=== PATIENT | male | born 1960 | race Caucasian/White ===

== ENCOUNTER 2017-08-15 08:12 | Day surgery (SDC) | payer BC ==
[2017-08-14 08:27] VITALS: BMI 38.7
[~2017-08-15 08:12] MED LIST: LACTATED RINGERS 1,000 ML IV SCH
[2017-08-15 09:31] VITALS: RESP 16; TEMP 97.6
[2017-08-15] MEDS ORDERED: LIDOCAINE 1% INJ 10MG/ML (20 ML MDV) ONE (09:48)
[2017-08-15] MEDS ORDERED: PROPOFOL 10 MG/ML 20 ML VIAL IV ONE (09:48)
--- NOTE | 2017-08-15 10:27 | P.PCN ---
Date of Procedure: 08/15/17 Procedure(s) Performed: Procedure: Colonoscopy and biopsy. Preoperative diagnosis: Screening for neoplasia, patient has history of polyps and questionable history of colitis noted on his last colonoscopy last year. 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 Preparation: HalfLytely prep. Sedation: Was provided by anesthesia. Brief clinical history: The patient is a 56-year-old male who I have evaluated in the office for the above reasons. He does not believe he has any symptoms of colitis, however, when specifically asked he acknowledges that he has multiple bowel movements each day and intermittent bleeding which he blames on hemorrhoids. Procedure: With the patient on his left lateral decubitus position and after informed consent and adequate sedation, the perianal area was inspected and it did not show any fissures or fistulas. There were no masses felt on digital rectal examination. The Olympus CFQ 160L video colonoscope was then inserted in the rectum in the usual fashion and advanced to the cecum. The distal 40-50 cm of the colon showed edema, erythema and friability of the mucosa and granularity and some exudation consistent with colitis of [id number] activity. There was no spontaneous bleeding. Multiple pseudopolyps were seen in that segment as well. I obtained biopsies from the right colon as well as from the rectosigmoid area and I obtained separate biopsies from the pseudopolyps. I retroflexed the endoscope in the rectum before the endoscope was withdrawn. The patient tolerated the procedure well. Plan: I summarized the findings to the patient. Will await biopsy results. I would consider treatment with mesalamine and see how that affects his bowel movements and bleeding and make further plans based on his course. I will keep you updated on his progress. With the history of polyps, we will continue screening colonoscopy every 5 years and perhaps sooner part of the follow-up of his colitis. He will follow up with you as planned.
[2017-08-15 10:50] VITALS: BP 139/78; PULSE 90
== END 2017-08-15 11:17 | disposition home or self-care (01) ==
LOC: ORWHC2ENDO 08:12
DX: Z12.11 Encounter for screening for malignant neoplasm of colon (principal); K51.90 Ulcerative colitis, unspecified, without complications; E78.5 Hyperlipidemia, unspecified; G47.33 Obstructive sleep apnea (adult) (pediatric); E07.9 Disorder of thyroid, unspecified; Z86.010 Personal history of colon polyps; Z79.1 Long term (current) use of non-steroidal anti-inflammatories (NSAID); Z79.899 Other long term (current) drug therapy; Z99.89 Dependence on other enabling machines and devices
CPT/HCPCS: 45380; 88305; J2001; J2704